=== PATIENT | male | born 1955 | race Caucasian/White ===

== ENCOUNTER 2020-03-07 05:57 | Day surgery (SDC) | payer MEDICAID ==
[2020-03-06 15:28] LABS: COVID AG,FIA SOURCE NASOPHARYNGEAL
[~2020-03-07] VITALS: Ht 182.9 cm; Wt 76.8 kg
[~2020-03-07 05:57] MED LIST: CYCLOPENTOLATE HCL 1% 2 ML OPHTHALMIC SOLUTION ONE; KETOROLAC TROMETHAMINE 0.5% 5 ML OPHTHALMIC SOLUTION ONE; MOXIFLOXACIN HCL 0.5% 3 ML OPHTHALMIC SOLUTION ONE; PHENYLEPHRINE HCL 2.5% 2 ML OPHTHALMIC SOLUTION ONE; RINGERS SOLUTION,LACTATED 500 ML IV ONE; TETRACAINE HCL/PF 0.5% 4 ML OPHTHALMIC SOLUTION ONE; TROPICAMIDE 1% 2 ML OPHTHALMIC SOLUTION ONE
[2020-03-07] MEDS ORDERED: FentaNYL CITRATE-PF 100 MCG/2 ML VIAL IVP ONE (05:58)
[2020-03-07] MEDS ORDERED: MIDAZOLAM HCL 2 MG/2 ML VIAL IVP ONE (05:58)
[2020-03-07] MEDS: PHENYLEPHRINE HCL 2.5% 2 ML OPHTHALMIC SOLUTION OS SCH ×3 (06:28→06:42)
[2020-03-07] MEDS: TETRACAINE HCL/PF 0.5% 4 ML OPHTHALMIC SOLUTION OS SCH ×3 (06:29→06:42)
[2020-03-07] MEDS: KETOROLAC TROMETHAMINE 0.5% 5 ML OPHTHALMIC SOLUTION OS SCH ×3 (06:29→06:42)
[2020-03-07] MEDS: MOXIFLOXACIN HCL 0.5% 3 ML OPHTHALMIC SOLUTION OS SCH ×3 (06:29→06:42)
[2020-03-07] MEDS: CYCLOPENTOLATE HCL 1% 2 ML OPHTHALMIC SOLUTION OS SCH ×3 (06:29→06:42)
[2020-03-07] MEDS: TROPICAMIDE 1% 2 ML OPHTHALMIC SOLUTION OS SCH ×3 (06:29→06:42)
[2020-03-07] MEDS ORDERED: NEOMYCIN/POLYMYXIN B/DEXAMETH 3.5 GM OPHTHALMIC OINTMENT ONE (16:32)
[2020-03-07] MEDS ORDERED: EPINEPHrine 1:1,000 [1 MG/ML] AMP ONE (16:32)
[2020-03-07] MEDS ORDERED: HYALURONATE SODIUM 12 MG/ML 0.8 ML SYRINGE IO ONE (16:32)
[2020-03-07] MEDS ORDERED: POVIDONE-IODINE 10% 15 ML SOLUTION UD ONE (16:32)
[2020-03-07] MEDS ORDERED: BALANCED SALT 15 ML OPHTHALMIC IRRIG.SOLN ONE (16:32)
[2020-03-07] MEDS ORDERED: PrednisoLONE ACETATE 1% 5 ML OPHTHALMIC SUSPENSION ONE (16:32)
[2020-03-07] MEDS ORDERED: LIDOCAINE/PF 1% 2 ML VIAL ONE (16:32)
== END 2020-03-07 09:15 | disposition home or self-care (01) ==
LOC: SURGERY 05:57
PROVIDERS: ATTEND Ophthalmology
DX: H25.12 Age-related nuclear cataract, left eye (principal); F17.210 Nicotine dependence, cigarettes, uncomplicated; Z88.8 Allergy status to other drugs, medicaments and biological substances; Z98.890 Other specified postprocedural states; Z72.89 Other problems related to lifestyle; Z87.442 Personal history of urinary calculi
CPT/HCPCS: 66984; 87426; 93005; C9803; J0171; J2250; J3010; J3490 ×2; J7120; V2632